=== PATIENT | female | born 2000 | race Caucasian/White ===

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

== ENCOUNTER 2021-03-30 19:28 | Emergency (ER) | payer MEDICAID ==
[2021-03-30 20:31] VITALS: BP 113/68; PULSE 77
[2021-03-30] MEDS ORDERED: Acetaminophen 500 MG Tab PO ONE (20:55)
--- NOTE | 2021-03-30 21:50 | EDM.PDOC ---
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 this afternoon he developed lumbar back pain which is not new for her and she then developed pain surrounding her uterus. mild dysuria with concentrated urine over the last few days. she denies cramping. 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 implant left arm Other Musculoskeletal History: scoliosis Psychiatric History: Reports: Anxiety, Depression - Infectious Disease History Infectious Disease History: Reports: Chicken Pox - Past Surgical History HEENT Surgical History: Reports: Other (See Below) Other HEENT Surgeries/Procedures: strep throat GI Surgical History: Reports: None Musculoskeletal Surgical History: Reports: Other (See Below) Other Musculoskeletal Surgeries/Procedures:: spine surgery in 2013 Social & Family History - Tobacco Use Tobacco Use Status *Q: Current Every Day Tobacco User Years of Tobacco use: 4 Packs/Tins Daily: 0.1 - Caffeine Use Caffeine Use: Reports: Coffee, Soda, Tea - Living Situation & Occupation Living situation: Reports: with Family Occupation: Student ED ROS GENERAL - Review of Systems Review Of Systems: See Below Constitutional: Denies: Fever, Chills Respiratory: Denies: Shortness of Breath, Wheezing Cardiovascular: Denies: Chest Pain GI/Abdominal: Reports: Abdominal Pain : Reports: Dysuria ED EXAM, GI/ABD - Physical Exam Exam: See Below Exam Limited By: No Limitations General Appearance: Alert, WD/WN, No Apparent Distress Head: Atraumatic, Normocephalic Respiratory/Chest: No Respiratory Distress, Lungs Clear, Normal Breath Sounds. No: Crackles, Rhonchi, Wheezing Cardiovascular: Regular Rate, Rhythm, No Murmur GI/Abdominal Exam: Normal Bowel Sounds, Soft, Non-Tender, No Distention Course - Vital Signs Last Recorded V/S: Last Vital Signs Temp 36.1 C 03/30/21 20:29 Pulse 77 03/30/21 20:29 Resp 14 03/30/21 20:29 BP 113/68 03/30/21 20:29 Pulse Ox 98 03/30/21 20:29 - Orders/Labs/Meds Labs: Laboratory Tests 03/30/21 Range/Units 21:20 Urine Color Yellow (YELLOW) Urine Appearance Clear (CLEAR) Urine pH 7.0 (5.0-8.0) Ur Specific Crozier 1.015 (1.008-1.030) Urine Protein Negative (NEGATIVE) mg/dL Urine Glucose (UA) Negative (NEGATIVE) mg/dL Urine Ketones Negative (NEGATIVE) mg/dL Urine Occult Blood Negative (NEGATIVE) Urine Nitrite Negative (NEGATIVE) Urine Bilirubin Negative (NEGATIVE) Urine Urobilinogen 0.2 (0.2-1.0) EU/dL Ur Leukocyte Esterase Negative (NEGATIVE) Urine RBC Not seen (0-5) Urine WBC 0-5 (0-5) Ur Epithelial Cells Rare Amorphous Sediment Not seen Urine Bacteria Rare Urine Mucus Not seen Meds: Medications Discontinued Medications Generic Name Dose Route Start Last Admin Trade Name [id number] PRN Reason Stop Dose Admin Acetaminophen 1,000 mg 03/30/21 20:55 03/30/21 21:00 Acetaminophen 500 Mg Tab PO 03/30/21 20:56 1,000 mg ONETIME ONE Administration - Re-Assessments/Exams Free Text/Narrative Re-Assessment/Exam: 03/30/21 21:56 UA nonindicative of UTI, encouraged increase fluid intake. following acetaminophen pain is relieved but not resolved Departure - Departure Time of Disposition: 21:50 Disposition: Home, Self-Care 01 Condition: Good Clinical Impression: Suprapubic discomfort, Pain in pelvis - Discharge Information *PRESCRIPTION DRUG MONITORING PROGRAM REVIEWED*: Not Applicable *COPY OF PRESCRIPTION DRUG MONITORING REPORT IN PATIENT JEREMIAH: Not Applicable Instructions: Pelvic Pain, Female, [id number] Referrals: Riddhi Joy CNM [Primary Care Provider] - Forms: ED Department Discharge Additional Instructions: rest fluid intake 1.5 L per day your urine does not have an infection use acetaminophen for back pain follow-up with ob if pain continues Sepsis Event Note (ED) - Evaluation Sepsis Screening Result: No Definite Risk - Focused Exam Vital Signs: Vital Signs Temp Pulse Resp BP Pulse Ox 03/30/21 20:29 36.1 C 77 14 113/68 98
== END 2021-03-30 22:00 | disposition home or self-care (01) ==
LOC: JP.ED 19:28
DX: O99.891 Other specified diseases and conditions complicating pregnancy (principal); R10.2 Pelvic and perineal pain; R10.30 Lower abdominal pain, unspecified; M41.9 Scoliosis, unspecified; Z72.0 Tobacco use; Z3A.19 19 weeks gestation of pregnancy
CPT/HCPCS: 81001; 99284; A9270

== ENCOUNTER 2021-07-12 15:18 | Emergency (ER) | payer MEDICAID ==
[2021-07-12 15:46] VITALS: BP 118/63; PULSE 90
--- NOTE | 2021-07-12 15:56 | EDM.PDOC ---
ED HPI GENERAL MEDICAL PROBLEM - General Chief Complaint: Skin Complaint Stated Complaint: KEITH CHILDS Time Seen by Provider: 07/12/21 15:55 Source of Information: Reports: Patient History Limitations: Reports: No Limitations - History of Present Illness INITIAL COMMENTS - FREE TEXT/NARRATIVE: Kimo presents today for complaints of itchy poison paige rash to face, neck, bilateral ears, abdomen, and genitals. She states she went duck hunting and was probably exposed to poison paige. She reports she has tried use of topical hydrocortisone without any improvement and now has some weeping to the nose and genitals. She denies any other rash, SOB, wheezing, difficulty breathing, fever, chills, nausea, vomiting, change in bowel/bladder or other concerns. 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 implant left arm Other Musculoskeletal History: scoliosis Psychiatric History: Reports: Anxiety, Depression - Infectious Disease History Infectious Disease History: Reports: Chicken Pox - Past Surgical History HEENT Surgical History: Reports: Other (See Below) Other HEENT Surgeries/Procedures: strep throat Musculoskeletal Surgical History: Reports: Other (See Below) Other Musculoskeletal Surgeries/Procedures:: spine surgery in 2013 Social & Family History - Tobacco Use Tobacco Use Status *Q: Never Tobacco User - Caffeine Use Caffeine Use: Reports: Coffee - Recreational Drug Use Recreational Drug Use: No - Living Situation & Occupation Living situation: Reports: with Family Occupation: Student ED ROS GENERAL - Review of Systems Review Of Systems: See Below Constitutional: Reports: No Symptoms HEENT: Reports: Other (itching, crusting to nose, forehead). Denies: Ear Disch arge, Ear Pain, Nosebleed, Nose Pain, Rhinitis, Sinus Problem, Throat Pain Respiratory: Reports: No Symptoms Cardiovascular: Reports: No Symptoms Endocrine: Reports: No Symptoms GI/Abdominal: Reports: No Symptoms : Reports: No Symptoms Musculoskeletal: Reports: No Symptoms Skin: Reports: Pruritis, Rash Neurological: Reports: No Symptoms Psychiatric: Reports: No Symptoms Hematologic/Lymphatic: Reports: No Symptoms Immunologic: Reports: No Symptoms ED EXAM, SKIN/RASH Exam: See Below Exam Limited By: No Limitations General Appearance: Alert, WD/WN, No Apparent Distress Eye Exam: Bilateral Eye: Normal Inspection, PERRL Ears: Normal Canal, Hearing Grossly Normal, Normal TMs, Other (erythema to ear lobes bilaterally. Small vesicles noted behind the ears. ) Nose: Normal Mucosa, No Blood, Other (crusting, vesicles to nose). No: Nasal Drainage Throat/Mouth: Normal Inspection, Normal Lips, Normal Teeth, Normal Gums, Normal Oropharynx, Normal Voice, No Airway Compromise Head: Atraumatic, Normocephalic Neck: Normal Inspection, Supple, Non-Tender, Full Range of Motion. No: Lym phadenopathy (R), Lymphadenopathy (L) Respiratory/Chest: No Respiratory Distress, Lungs Clear, Normal Breath Sounds, No Accessory Muscle Use, Chest Non-Tender. No: Crackles, Rales, Rhonchi, Wheezing, Stridor, Accessory Muscle Use, Retractions, Splinting Cardiovascular: Normal Peripheral Pulses, Regular Rate, Rhythm, No Edema, No Gallop, No Murmur, No Rub, Other (FHT 135 bpm regular, strong, movement noted. ) Peripheral Pulses: 4+: Radial (L), Radial (R) GI/Abdominal: Normal Bowel Sounds, Soft, Non-Tender. No: Guarding, Rigid, Rebound, Tender (Female) Exam: No: Normal External Exam (edema, slight erythema with small vesicles noted to salvatore and labia. No purulent drainage noted. ) Back Exam: Normal Inspection, Full Range of Motion. No: CVA Tenderness (R), CVA Tenderness (L) Extremities: Normal Inspection, Normal Range of Motion, Non-Tender, No Pedal Edema, Normal Capillary Refill Neurological: Alert, Oriented, CN II-XII Intact, Normal Cognition, Normal Gait, No Motor/Sensory Deficits Psychiatric: Normal Affect, Normal Mood Skin: Excoriations, Rash (rash to nose, bilateral ears, posterior neck, few scattered vesicles to abdomen. Vesicles with some weeping to salvatore, labia. No significant erythema. ) Characteristics: Linear, Vesicular, Urticarial. No: Bullous, Necrotic Associated features: Tenderness, Crusting, Weeping Lymphatic: No Adenopathy Course - Vital Signs Last Recorded V/S: Last Vital Signs Temp 36.5 C 07/12/21 15:49 Pulse 90 07/12/21 15:49 Resp 16 07/12/21 15:49 BP 118/63 07/12/21 15:49 Pulse Ox 98 07/12/21 15:49 - Re-Assessments/Exams Free Text/Narrative Re-Assessment/Exam: Rash and presentation discussed with Gertrude Devries CNM, Rash does not appear like PUPPS, however we will treat with prednisone taper, hydroxyzine, zyrtec and have Kimo follow up with her primary Laurie Madrid CNM in 2 to 3 days. Patient and her significant other informed of plan, they are in agreement. 07/13/21 00:01 Departure - Departure Time of Disposition: 16:32 Disposition: Home, Self-Care 01 Condition: Good Clinical Impression: Poison pagie dermatitis - Discharge Information Instructions: Poison Paige Dermatitis, [id number] Referrals: Ramona Joshua CNM [Primary Care Provider] - Forms: ED Department Discharge Additional Instructions: You have been evaluated and treated for poison paige of the face, abdomen, neck, bilateral ears, salvatore and labia. Take prednisone 4 tablets once a day for 3 days, then 3 tablets once a day for 3 days then 2 tablets once a day for three days, then one tablet once a day. Follow up with your OB provider Damian Joshua on Wednesday or WednesdayJuly 14 for recheck. She may change your prednisone or advise other treatment. Use calamine topically as needed. Ice pack for comfort. Take zyrtec (cetirizine) 10mg by mouth once a day. Take hydroxyzine 25mg by mouth in afternoon and prior to bed as needed for itching - can make you sleepy. Take pepcid (famotidine) 20mg tablet once in morning and once prior to bed to help with histamine response. Return for worsening, signs of infection or other concerns. Sepsis Event Note (ED) - Evaluation Sepsis Screening Result: No Definite Risk - Focused Exam Vital Signs: Vital Signs Temp Pulse Resp BP Pulse Ox 07/12/21 15:49 36.5 C 90 16 118/63 98 07/12/21 15:45 36.5 C 90 16 118/63 98 - Assessment/Plan Assessment:: Poison paige dermatitis Plan: Patient evaluated and treated for poison paige of the face, abdomen, neck, bilateral ears, salvatore and labia. Take prednisone 4 tablets once a day for 3 days, then 3 tablets once a day for 3 days then 2 tablets once a day for three days, then one tablet once a day. Follow up with your OB provider Laurie Joshua on Wednesday or WednesdayJuly 14 for recheck. She may change your prednisone or advise other treatment. Use calamine topically as needed. Ice pack for comfort. Take zyrtec (cetirizine) 10mg by mouth once a day. Take hydroxyzine 25mg by mouth in afternoon and prior to bed as needed for itching - can make you sleepy. Take pepcid (famotidine) 20mg tablet once in morning and once prior to bed to help with histamine response. Return for worsening, signs of infection or other concerns.
== END 2021-07-12 16:50 | disposition home or self-care (01) ==
LOC: JP.ED 15:18
DX: L23.7 Allergic contact dermatitis due to plants, except food (principal)
CPT/HCPCS: 99283

== ENCOUNTER 2021-09-03 03:21 | Emergency (ER) | payer MEDICAID ==
--- NOTE | 2021-09-03 03:56 | EDM.PDOC ---
ED HPI GENERAL MEDICAL PROBLEM - General Chief Complaint: HEALTH CARE / MEDICAL JOB TITLES Problem Stated Complaint: BLEEDING AFTER Time Seen by Provider: 09/03/21 03:27 Source of Information: Reports: Patient History Limitations: Reports: No Limitations - History of Present Illness INITIAL COMMENTS - FREE TEXT/NARRATIVE: Kimo matos 1-year-old female presenting to the ED for evaluation of hemorrhage. Patient is 11 days after having a noneventful vaginal delivery. She has had some lochia since delivery but tonight started having very heavy bleeding with passage of clots and increased pelvic pain. She has started to feel lightheaded about the last 45 minutes. Patient is O- and did receive RhoGam during her x2. She is breast-feeding. She denies any fever or chills. She has saturated 2 maxi pads in about 40 minutes. Abdominal Pain Score (Numeric/FACES): 8 - Related Data Allergies Allergy/AdvReac Type Severity Reaction Status Date / Time No Known Allergies Allergy Verified 08/03/21 12:06 Home Meds: Home Meds Mv-Mn/Iron/FA/Herbal/Digestive [ One Tablet] 1 tab PO DAILY 03/30/21 [History] Docusate Sodium [Colace] 100 mg PO BID 05/05/21 [History] Past Medical History Gastrointestinal History: Reports: Chronic Constipation, GERD HEALTH CARE / MEDICAL JOB TITLES History: Reports: Other HEALTH CARE / MEDICAL JOB TITLES History: B.C. implant left arm Other Musculoskeletal History: scoliosis Psychiatric History: Reports: Anxiety, Depression - Infectious Disease History Infectious Disease History: Reports: Chicken Pox - Past Surgical History HEENT Surgical History: Reports: Other (See Below) Other HEENT Surgeries/Procedures: strep throat GI Surgical History: Reports: None Musculoskeletal Surgical History: Reports: Other (See Below) Other Musculoskeletal Surgeries/Procedures:: spine surgery in 2013 Social & Family History - Family History Family Medical History: No Pertinent Family History - Tobacco Use Tobacco Use Status *Q: Never Tobacco User Second Hand Smoke Exposure: No - Caffeine Use Caffeine Use: Reports: None - Recreational Drug Use Recreational Drug Use: No - Living Situation & Occupation Living situation: Reports: with Family Occupation: Student ED ROS GENERAL - Review of Systems Review Of Systems: See Below Constitutional: Reports: No Symptoms HEENT: Reports: No Symptoms Respiratory: Reports: No Symptoms Cardiovascular: Reports: Chest Pain (Little bit of chest heaviness, but the patient is also very anxious.) Endocrine: Reports: No Symptoms GI/Abdominal: Reports: No Symptoms, Abdominal Pain (Low bilateral abdominal pain ) : Reports: Other (Heavy vaginal bleeding with passage of a large clot measuring proximately 3 x 6 cm.) Musculoskeletal: Reports: No Symptoms Skin: Reports: No Symptoms Neurological: Reports: Dizziness (Lightheadedness) Psychiatric: Reports: Anxiety (Patient is very anxious) Hematologic/Lymphatic: Reports: Anemia (She has had it episodes of anemia after giving blood) Immunologic: Reports: No Symptoms ED EXAM, RENAL/ - Physical Exam Exam: See Below Exam Limited By: No Limitations General Appearance: Alert, Anxious, Mild Distress Eye Exam: Bilateral Eye: PERRL Respiratory/Chest: No Respiratory Distress, Lungs Clear, Normal Breath Sounds Cardiovascular: Normal Peripheral Pulses, Regular Rate, Rhythm, No Murmur, Tachycardia GI/Abdominal: Normal Bowel Sounds, Soft, Guarding, Rebound, Tender (Mild bilateral low abdominal tenderness specially at the pelvic rim. I cannot palpate the fundus of the uterus.) (Female) Exam: Cervix Motion Tenderness, Enlarged Uterus, Uterine Tenderness (Mild uterine tenderness to palpation.), Vaginal Bleeding (Mild amount of vaginal bleeding from the cervix. Ring forceps and 4 x 4 surgical sponges were used to evacuate the blood. Only a small amount remained. A clot was removed from the cervix os.). No: Adnexal Mass, Adnexal Tenderness, Vaginal Lesions, Vaginal Tears Neurological: Alert, Oriented, Normal Cognition, No Motor/Sensory Deficits Psychiatric: Anxious Skin Exam: Warm, Dry, Intact, Normal Color Course - Vital Signs Last Recorded V/S: Last Vital Signs Temp 36.7 C 09/03/21 03:32 Pulse 91 09/03/21 03:32 Resp 16 09/03/21 03:32 BP 133/87 09/03/21 03:32 Pulse Ox 99 09/03/21 03:32 - Orders/Labs/Meds Orders: Active Orders 24 hr Category Date Time Status Pelvis Non OB Comp [US] Stat Exams 09/03/21 03:44 Ordered ANTIBODY IDENTIFICATION [BBK] Stat Lab 09/03/21 03:35 Results PATIENT RETYPE [BBK] Stat Lab 09/03/21 03:35 Results TYPE AND SCREEN [BBK] Stat Lab 09/03/21 03:35 Results Labs: Laboratory Tests 09/03/21 09/03/2121 Range/Units 03:35 03:35 03:35 WBC 7.9 (4.5-11.0) K/uL RBC 4.49 (3.30-5.50) M/uL Hgb 13.9 (12.0-15.0) g/dL Hct 41.1 (36.0-48.0) % MCV 92 (80-98) fL MCH 31 (27-31) pg MCHC 34 (32-36) % Plt Count 371 (150-400) K/uL Neut % (Auto) 57.6 (36-66) % Lymph % (Auto) 32.6 (24-44) % [place] % (Auto) 7.5 H (2-6) % Eos % (Auto) 2.0 (2-4) % Baso % (Auto) 0.3 (0-1) % PT 9.6 (9.2-10.6) sec INR 0.9 APTT 26.4 (21.4-31.8) sec Blood Type O NEGATIVE Gel Antibody Screen Positive A* - Radiology Interpretation Free Text/Narrative:: I discussed the ultrasound findings of the pelvis with the tech who feels that the endometrium is thickened 2.4 cm and there are probable products of concepti on although there is no color flow to these areas in the uterus. - Re-Assessments/Exams Free Text/Narrative Re-Assessment/Exam: 09/03/21 05:12 patient's labs show a CBC with a leukocyte count of 7.9, hemoglobin of 13.9, hematocrit of 41.1 and a platelet count of 371,000. The PT is 96 with an INR of 0.9. The PTT is 26.4. An ultrasound of the pelvis was performed showing a 2.4 cm endometrium with probable products of conception seen inside the uterus. There is also a large clot seen inside the uterus. The patient is still significantly bleeding so I will discussed the case with the HEALTH CARE / MEDICAL JOB TITLES on-call at [facility] where the patient delivered on 08/22/2021. Dr. Barba is her HEALTH CARE / MEDICAL JOB TITLES. 09/03/21 05:29 I discussed the case with Dr. Elaine, HEALTH CARE / MEDICAL JOB TITLES at [facility] [place] in [place] who accepts the patient in transfer. Patient to go by private vehicle. I also discussed the case with the emergency room as she will be coming to their facility Departure - Departure Time of Disposition: 05:39 Disposition: DC/Tfer to Acute Hospital 02 Clinical Impression: Retained products of conception hemorrhage Qualifiers: hemorrhage type: delayed hemorrhage Qualified Code(s): O72.2 - Delayed and secondary hemorrhage - Discharge Information Referrals: Ramona Joshua CNM [Primary Care Provider] - Forms: ED Department Discharge Sepsis Event Note (ED) - Evaluation Sepsis Screening Result: No Definite Risk - Focused Exam Vital Signs: Vital Signs Temp Pulse Resp BP Pulse Ox 09/03/21 03:32 36.7 C 91 16 133/87 99 - Problem List & Annotations (1) hemorrhage SNOMED Code(s): 74372528 Code(s): O72.1 - OTHER IMMEDIATE HEMORRHAGE Status: Acute Priority: Medium Current Visit: Yes Qualifiers: hemorrhage type: delayed hemorrhage Qualified Code(s): O72.2 - Delayed and secondary hemorrhage (2) Retained products of conception SNOMED Code(s): 038080813 Code(s): XEF0417 - Status: Acute Priority: Medium Current Visit: Yes - Problem List Review Problem List Initiated/Reviewed/Updated: Yes - My Orders Last 24 Hours: My Active Orders 09/03/21 03:35 ANTIBODY IDENTIFICATION [BBK] Stat PATIENT RETYPE [BBK] Stat TYPE AND SCREEN [BBK] Stat 09/03/21 03:44 Pelvis Non OB Comp [US] Stat - Assessment/Plan Last 24 Hours: My Active Orders 09/03/21 03:35 ANTIBODY IDENTIFICATION [BBK] Stat PATIENT RETYPE [BBK] Stat TYPE AND SCREEN [BBK] Stat 09/03/21 03:44 Pelvis Non OB Comp [US] Stat
--- NOTE | 2021-09-03 05:33 | CRLUS ---
For Patients: As a result of the Century Cures Act, medical imaging exams and procedure reports are released immediately into your electronic medical record. You may view this report before your referring provider. If you have questions, please contact your health care provider. INDICATION: Bleeding 11 days TECHNIQUE: Ultrasound pelvis transabdominal and transvaginal for better assessment or to better visualize the endometrium. Real-time sonographic images with spectral and color Doppler imaging of the ovaries were obtained. COMPARISON: None FINDINGS: Uterus: 17.6 x 8.0 x 7.5 cm. Normal echotexture of the myometrium. No masses. Endometrium: Transvaginal imaging was performed to better evaluate the endometrium. 2.5 cm in thickness. Complex material within the endometrial canal. No blood flow identified in the endometrium. Right ovary: 3.2 x 2.6 x 1.7 cm. No ovarian or adnexal masses. Normal arterial and venous blood flow. Left ovary: 3.8 x 3.4 x 2.2 cm. No ovarian or adnexal masses. Cul-de-sac: No significant free fluid. IMPRESSION: Complex material within the endometrial canal may represent hemorrhage or retained products of conception. No blood flow identified within the endometrium. Recommend gynecology consultation. Enlarged uterus consistent with recent state. Dictated by Valeria Dumont MD @ 09/03/2021 5:32:44 AM (Electronically Signed)
[2021-09-03 05:43] VITALS: BP 112/71; PULSE 85
--- NOTE | 2021-09-03 09:15 | CRLUS ---
Final Report: INDICATION: Bleeding 11 days TECHNIQUE: Ultrasound pelvis transabdominal and transvaginal for better assessment or to better visualize the endometrium. Real-time sonographic images with spectral and color Doppler imaging of the ovaries were obtained. COMPARISON: None FINDINGS: Uterus: 17.6 x 8.0 x 7.5 cm. Normal echotexture of the myometrium. No masses. Endometrium: Transvaginal imaging was performed to better evaluate the endometrium. 2.5 cm in thickness. Complex material within the endometrial canal. No blood flow identified in the endometrium. Right ovary: 3.2 x 2.6 x 1.7 cm. No ovarian or adnexal masses. Normal arterial and venous blood flow. Left ovary: 3.8 x 3.4 x 2.2 cm. No ovarian or adnexal masses. Cul-de-sac: No significant free fluid. IMPRESSION: Complex material within the endometrial canal may represent hemorrhage or retained products of conception. No blood flow identified within the endometrium. Recommend gynecology consultation. Enlarged uterus consistent with recent state. Dictated by Valeria Dumont MD @ 09/03/2021 5:32:44 AM (Electronic Signature) MTDD
--- NOTE | 2021-09-03 11:19 | CRLUS ---
Final Report: INDICATION: Bleeding 11 days TECHNIQUE: Ultrasound pelvis transabdominal and transvaginal for better assessment or to better visualize the endometrium. Real-time sonographic images with spectral and color Doppler imaging of the ovaries were obtained. COMPARISON: None FINDINGS: Uterus: 17.6 x 8.0 x 7.5 cm. Normal echotexture of the myometrium. No masses. Endometrium: Transvaginal imaging was performed to better evaluate the endometrium. 2.5 cm in thickness. Complex material within the endometrial canal. No blood flow identified in the endometrium. Right ovary: 3.2 x 2.6 x 1.7 cm. No ovarian or adnexal masses. Normal arterial and venous blood flow. Left ovary: 3.8 x 3.4 x 2.2 cm. No ovarian or adnexal masses. Cul-de-sac: No significant free fluid. IMPRESSION: Complex material within the endometrial canal may represent hemorrhage or retained products of conception. No blood flow identified within the endometrium. Recommend gynecology consultation. Enlarged uterus consistent with recent state. Dictated by Valeria Dumont MD @ 09/03/2021 5:32:44 AM Signed by: Valeria Dumont MD @09/03/2021 5:32:44 AM (Electronic Signature) MTDD
== END 2021-09-03 06:02 ==
LOC: JP.ED 03:21
DX: O72.2 Delayed and secondary postpartum hemorrhage (principal)
CPT/HCPCS: 36415; 76830; 76856; 85025; 85610; 85730; 86850; 86900; 86901; 99284-25

== ENCOUNTER 2021-09-18 12:43 | Emergency (ER) | payer MEDICAID ==
[2021-09-18 13:19] VITALS: BP 118/70; PULSE 87
--- NOTE | 2021-09-18 13:35 | EDM.PDOC ---
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 At that time she was transferred to [facility] for a D&C as we did not have any OB coverage. Since then she has had continued bleeding but not as heavy as she experienced today. 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 The patient is concerned because of the bleeding is never stopped since delivery. She normally sees Dr. Jameson Porter who she was on the phone with when I came in to do the pelvic exam. 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 implant left arm. D&C Nove 2020 Other Musculoskeletal History: scoliosis Psychiatric History: Reports: Anxiety, Depression - Infectious Disease History Infectious Disease History: Reports: Chicken Pox - Past Surgical History HEENT Surgical History: Reports: Other (See Below) Other HEENT Surgeries/Procedures: strep throat GI Surgical History: Reports: None Musculoskeletal Surgical History: Reports: Other (See Below) Other Musculoskeletal Surgeries/Procedures:: spine surgery in 2013 Social & Family History - Family History Family Medical History: No Pertinent Family History - Tobacco Use Tobacco Use Status *Q: Never Tobacco User - Caffeine Use Caffeine Use: Reports: None - Recreational Drug Use Recreational Drug Use: No - Living Situation & Occupation Living situation: Reports: with Family Occupation: Student ED ROS GENERAL - Review of Systems Review Of Systems: See Below Constitutional: Reports: No Symptoms HEENT: Reports: No Symptoms Respiratory: Reports: No Symptoms Cardiovascular: Reports: Lightheadedness Endocrine: Reports: No Symptoms GI/Abdominal: Reports: No Symptoms : Reports: Other ( bleeding) Musculoskeletal: Reports: No Symptoms Skin: Reports: No Symptoms Neurological: Reports: No Symptoms Psychiatric: Reports: No Symptoms Hematologic/Lymphatic: Reports: No Symptoms Immunologic: Reports: No Symptoms ED EXAM, RENAL/ - Physical Exam Exam: See Below Exam Limited By: No Limitations General Appearance: Alert, No Apparent Distress, Anxious Eye Exam: Bilateral Eye: EOMI, PERRL Throat/Mouth: Normal Inspection, Normal Oropharynx, Normal Voice, No Airway Comp romise Respiratory/Chest: No Respiratory Distress, Lungs Clear, Normal Breath Sounds Cardiovascular: Normal Peripheral Pulses, Regular Rate, Rhythm, No Murmur GI/Abdominal: Normal Bowel Sounds, Soft, Non-Tender (Female) Exam: Cervical Dilatation (Cervix is still dilated with clot in the os.), Cervix Motion Tenderness (Normal cervical motion tenderness), Vaginal Bleeding (Mild amount of vaginal bleeding coming from the uterus.). No: Adnexal Mass, Adnexal Tenderness, Enlarged Uterus, Uterine Tenderness Neurological: Alert, Oriented, Normal Cognition, No Motor/Sensory Deficits Psychiatric: Depressed Mood Course - Vital Signs Last Recorded V/S: Last Vital Signs Temp 36.8 C 09/18/21 13:00 Pulse 87 09/18/21 13:18 Resp 16 09/18/21 13:18 BP 118/70 09/18/21 13:18 Pulse Ox 99 09/18/21 13:18 - Orders/Labs/Meds Labs: Laboratory Tests 09/18/21 09/18/21 Range/Units 13:24 13:24 WBC 5.5 (4.5-11.0) K/uL RBC 3.69 (3.30-5.50) M/uL Hgb 11.4 L D (12.0-15.0) g/dL Hct 34.7 L (36.0-48.0) % MCV 94 (80-98) fL MCH 31 (27-31) pg MCHC 33 (32-36) % Plt Count 358 (150-400) K/uL Neut % (Auto) 48.0 (36-66) % Lymph % (Auto) 41.2 (24-44) % [place] % (Auto) 8.4 H (2-6) % Eos % (Auto) 2.0 (2-4) % Baso % (Auto) 0.4 (0-1) % PT 10.2 (9.2-10.6) sec INR 1.0 APTT 25.1 (21.4-31.8) sec Meds: Medications Discontinued Medications Generic Name Dose Route Start Last Admin Trade Name Freq PRN Reason Stop Dose Admin Methylergonovine Maleate 0.2 mg 09/18/21 14:31 Methylergonovine 0.2 Mg/1 Ml Amp IM 09/18/21 14:32 ONETIME STA - Re-Assessments/Exams Free Text/Narrative Re-Assessment/Exam: 09/18/21 14:34 I reviewed the patient's labs showing a leukocyte count of 5.5, hemoglobin of 11.4, hematocrit of 34.7 and a platelet count of 358,000. Hemoglobin is down from 13.9 last week. I discussed this with the patient's PARI MUTUEL CLERK, Dr. Jamesno Porter who recommended starting the patient on Methergine 0.2 mg every 6 hours for 2 days. He will also arrange for her to follow-up in the clinic next week. This was discussed with the patient as well as indications to return to the ED. At this time she is suitable for discharge in satisfactory condition. Departure - Departure Time of Disposition: 14:35 Disposition: Home, Self-Care 01 Clinical Impression: hemorrhage Qualifiers: hemorrhage type: delayed hemorrhage Qualified Code(s): O72.2 - Delayed and secondary hemorrhage - Discharge Information Prescriptions: Methylergonovine Maleate [Methergine] 0.2 mg PO QID 2 Days #8 tablet Instructions: Hemorrhage Referrals: Ramona Joshua CNM [Primary Care Provider] - Forms: ED Department Discharge Care Plan Goals: I discussed the case with Dr. Jameson Porter. He recommended starting you on Methergine 0.2 mg 4 times a day for the next 2 days to try to slow the bleeding down. Sepsis Event Note (ED) - Evaluation Sepsis Screening Result: No Definite Risk - Focused Exam Vital Signs: Vital Signs Temp Pulse Resp BP Pulse Ox 09/18/21 13:18 87 16 118/70 99 09/18/21 13:00 36.8 C 96 14 126/82 99 09/18/21 12:54 36.8 C 96 14 126/82 99 - Problem List & Annotations (1) hemorrhage SNOMED Code(s): 19239426 Code(s): O72.1 - OTHER IMMEDIATE HEMORRHAGE Status: Acute Priority: Medium Current Visit: Yes Qualifiers: hemorrhage type: delayed hemorrhage Qualified Code(s): O72.2 - Delayed and secondary hemorrhage - Problem List Review Problem List Initiated/Reviewed/Updated: Yes
[2021-09-18] MEDS ORDERED: Methylergonovine 0.2 MG/1 ML Amp IM STA (14:31)
== END 2021-09-18 15:04 | disposition home or self-care (01) ==
LOC: JP.ED 12:43
DX: O72.2 Delayed and secondary postpartum hemorrhage (principal)
CPT/HCPCS: 36415; 85025; 85610; 85730; 96372; 99284; J2210

== ENCOUNTER 2023-07-18 22:17 | Emergency (ER) | payer MEDICAID ==
[2023-07-18] MEDS ORDERED: LORazepam 1 MG Tab PO ONE (22:38)
[2023-07-18 22:48] LABS: BASOPHILS ABSOLUTE AUTO 0.02 K/uL (0.00-0.10); BASOPHILS PERCENT AUTO 0.3 % (0.1-1.3); EOSINOPHILS ABSOLUTE AUTO 0.13 K/uL (0.00-0.40); EOSINOPHILS PERCENT AUTO 1.8 % (0.0-5.4); HEMATOCRIT 38.4 % (34.3-46.0); HEMOGLOBIN 13.2 g/dL (11.2-15.5); IMMATURE GRAN ABSOLUTE AUTO 0.02 K/uL (0.00-0.23); IMMATURE GRAN PERCENT AUTO 0.3 % (0.0-0.7); LYMPHOCYTES ABSOLUTE AUTO 2.98 K/uL (0.8-3.3); LYMPHOCYTES PERCENT AUTO 40.8 % (11.4-47.7); MEAN CORPUSCULAR HEMOGLOBIN 30.6 pg (31.6-35.5); MEAN CORPUSCULAR HGB CONC 34.4 g/dL (31.6-35.5); MEAN CORPUSCULAR VOLUME 89.1 fL (81.4-99.0); MONOCYTES PERCENT AUTO 5.5 % (3.3-12.6); NEUTROPHILS ABSOLUTE AUTO 3.76 K/uL (1.0-7.6); NEUTROPHILS PERCENT AUTO 51.3 % (40.0-78.1); PLATELET COUNT,PLT 248 K/uL (130-375); RED BLOOD CELL COUNT 4.31 M/uL (3.77-5.24); WHITE BLOOD CELL COUNT,WBC 7.3 K/uL (3.2-11.0)
[2023-07-18 23:08] LABS: A/G RATIO 1.2 (1.2-2.2); ALANINE AMINOTRANSFERASE,ALT 19 U/L (12-78); ALBUMIN 3.8 g/dL (3.4-5.0); ALKALINE PHOSPHATASE 74 U/L (46-116); ANION GAP 8.9 mmol/L (5.0-14.0); ASPARTATE AMNIOTRANSFERASE,AST 13 U/L (15-37); BILIRUBIN TOTAL 0.2 mg/dL (0.2-1.0); BLOOD UREA NITROGEN,BUN 12 mg/dL (7-18); C-REACTIVE PROTEIN 0.11 mg/dL (0.0-0.3); CALCIUM 8.8 mg/dL (8.5-10.1); CARBON DIOXIDE,CO2 26 mmol/L (21-32); CHLORIDE,CL 105 mmol/L (100-108); CREATININE 0.7 mg/dL (0.6-1.0); ESTIMATED GFR 125 mL/min (>60); GLUCOSE RANDOM 118 mg/dL (74-106); POTASSIUM,K 3.9 mmol/L (3.6-5.2); PROTEIN TOTAL,TP 7.1 g/dL (6.4-8.2); SODIUM,NA 140 mmol/L (140-148)
[2023-07-18] MEDS ORDERED: Aluminum Hydroxide/Magnesium Hydroxide/Simethicone Susp 30 ML Cup PO STA (23:23)
[2023-07-18 23:49] VITALS: BP 124/74; PULSE 81
== END 2023-07-19 00:17 | disposition home or self-care (01) ==
LOC: JP.ED 22:17
DX: R14.3 Flatulence (principal); F41.1 Generalized anxiety disorder
CPT/HCPCS: 36415; 71046; 80053; 85025; 85379; 86140; 99285; A9270

== ENCOUNTER 2024-08-16 16:38 | Emergency (ER) | payer MEDICAID ==
[2024-08-16 17:34] LABS: BASOPHILS ABSOLUTE AUTO 0.03 K/uL (0.00-0.10); BASOPHILS PERCENT AUTO 0.3 % (0.1-1.3); EOSINOPHILS ABSOLUTE AUTO 0.19 K/uL (0.00-0.40); EOSINOPHILS PERCENT AUTO 1.9 % (0.0-5.4); HEMATOCRIT 39.5 % (34.3-46.0); HEMOGLOBIN 13.9 g/dL (11.2-15.5); IMMATURE GRAN ABSOLUTE AUTO 0.08 K/uL (0.00-0.23); IMMATURE GRAN PERCENT AUTO 0.8 % (0.0-0.7); LYMPHOCYTES PERCENT AUTO 22.2 % (11.4-47.7); MEAN CORPUSCULAR HGB CONC 35.2 g/dL (31.6-35.5); MEAN CORPUSCULAR VOLUME 93.8 fL (81.4-99.0); MONOCYTES ABSOLUTE AUTO 0.59 K/uL (0.20-0.90); NEUTROPHILS ABSOLUTE AUTO 6.81 K/uL (1.0-7.6); NEUTROPHILS PERCENT AUTO 68.8 % (40.0-78.1); PLATELET COUNT,PLT 211 K/uL (130-375); RED BLOOD CELL COUNT 4.21 M/uL (3.77-5.24); WHITE BLOOD CELL COUNT,WBC 9.9 K/uL (3.2-11.0)
[2024-08-16] MEDS: Iopamidol 755 Mg/ML 100 ML Bottle IV SCH (17:55)
[2024-08-16] MEDS: Sodium Chloride 0.9% 100 ML IV SCH (17:55)
[2024-08-16 17:57] LABS: A/G RATIO 0.8 (1.2-2.2); ALANINE AMINOTRANSFERASE,ALT 19 U/L (12-78); ALBUMIN 3.1 g/dL (3.4-5.0); ALKALINE PHOSPHATASE 164 U/L (46-116); ANION GAP 12.8 mmol/L (5.0-14.0); ASPARTATE AMNIOTRANSFERASE,AST 21 U/L (15-37); BILIRUBIN TOTAL 0.3 mg/dL (0.2-1.0); BLOOD UREA NITROGEN,BUN 8 mg/dL (7-18); CALCIUM 10.2 mg/dL (8.5-10.1); CARBON DIOXIDE,CO2 24 mmol/L (21-32); CHLORIDE,CL 105 mmol/L (100-108); CREATININE 0.6 mg/dL (0.6-1.0); ESTIMATED GFR 128 mL/min (>60); GLUCOSE RANDOM 77 mg/dL (74-106); POTASSIUM,K 3.7 mmol/L (3.6-5.2); PROTEIN TOTAL,TP 7.2 g/dL (6.4-8.2); SODIUM,NA 142 mmol/L (140-148)
[2024-08-16 17:58] LABS: TROPONIN I HIGH SENSITIVITY < 4.0 pg/mL (<=60.3)
[2024-08-16 19:39] LABS: APPEARANCE,URINE CLOUDY (CLEAR); BILIRUBIN,URINE NEGATIVE (NEGATIVE); COLOR,URINE YELLOW (YELLOW); GLUCOSE,URINE NEGATIVE (NEGATIVE); KETONES,URINE NEGATIVE (NEGATIVE); LEUKOCYTE ESTERASE,URINE SMALL (NEGATIVE); NITRITE,URINE NEGATIVE (NEGATIVE); OCCULT BLOOD,URINE LARGE (NEGATIVE); PH,URINE 6.5 (5.0-8.0); PROTEIN,URINE NEGATIVE (NEGATIVE); UROBILINOGEN,URINE 0.2 EU/dL (0.2-1.0)
[2024-08-16 19:41] LABS: AMORPHOUS SEDIMENT,URINE NOT SEEN; BACTERIA,URINE FEW; EPITHELIAL CELLS,URINE NOT SEEN; MUCUS,URINE NOT SEEN; RBC,URINE 20-30 (0-5)
[2024-08-16 19:44] VITALS: BP 115/77; PULSE 76
== END 2024-08-16 20:18 | disposition home or self-care (01) ==
LOC: JP.ED 16:38
DX: O99.893 Other specified diseases and conditions complicating puerperium (principal); R51.9 Headache, unspecified; R07.89 Other chest pain; R07.81 Pleurodynia; Z86.16 Personal history of COVID-19; Z87.891 Personal history of nicotine dependence; Z79.899 Other long term (current) drug therapy
CPT/HCPCS: 36415; 71275; 80053; 81001; 84484; 85025; 93005; 93010; 99283; 99285; J3490; Q9967